=== PATIENT | male | born 2000 | race Caucasian/White ===

== ENCOUNTER 2020-05-01 19:21 | Emergency (ER) | payer OTHER, MEDICAID ==
[~2020-05-01] VITALS: Ht 185.4 cm; Wt 104.3 kg
[2020-05-01 19:30] VITALS: BP_SYST 160
[2020-05-01] MEDS ORDERED: NACL 0.9% 1,000 ML IV ONE (19:42)
[2020-05-01 19:58] LABS: BILIRUBIN,URINE NEGATIVE (NEGATIVE); CLARITY/URINE CLEAR (CLEAR); COLOR,URINE YELLOW (YELLOW); GLUCOSE,URINE NEGATIVE (NEGATIVE); KETONES,URINE TRACE (NEGATIVE); LEUKOCYTE ESTERASE ,URINE NEGATIVE (NEGATIVE); NITRITE, URINE NEGATIVE (NEGATIVE); PROTEIN URINE TRACE (NEGATIVE); UROBILINOGEN,URINE 0.2 (0.2-1.0)
[2020-05-01 20:05] LABS: BLOOD, URINE TRACE (NEGATIVE)
[2020-05-01 20:32] LABS: BASOPHILS # (AUTO) 0.1 K/uL (0.0-0.2); BASOPHILS % (AUTO) 0.6 % (0.0-2.0); EOSINOPHILS # (AUTO) 0.1 K/uL (0.0-0.4); EOSINOPHILS % (AUTO) 0.7 % (0.0-4.0); HEMATOCRIT 50.6 % (36-54); HEMOGLOBIN 16.7 g/dL (14.0-18.0); LYMPHOCYTES # (AUTO) 2.7 K/uL (1.0-5.5); MEAN CORPUSCULAR HEMOGLOBIN 28 pg (27-31); MEAN CORPUSCULAR HGB CONC 33 % (32-36); MEAN CORPUSCULAR VOLUME 84 fL (79.0-98.0); MONOCYTES % (AUTO) 11.5 % (1.7-9.3); NEUTROPHILS # (AUTO) 5.2 K/uL (1.8-7.7); NEUTROPHILS % (AUTO) 57.2 % (40.0-70.0); PLATELET COUNT (AUTO) 271 K/uL (130-430); RED BLOOD CELL COUNT(AUTO) 6.03 MIL/uL (4.2-6.2); WHITE BLOOD COUNT (AUTO) 9.1 K/uL (4.5-11.0)
[2020-05-01 20:34] LABS: CREATININE 1.04 mg/dL (0.55-1.30); POTASSIUM 3.4 mmol/L (3.5-5.1)
[2020-05-01 20:35] LABS: PROTHROMBIN TIME 10.2 SECS (9.5-12.5)
[2020-05-01 20:39] LABS: ALBUMIN 4.5 g/dL (3.4-4.8); TOTAL BILIRUBIN 0.8 mg/dL (0.0-1.0)
[2020-05-01 22:38] VITALS: BP_SYST 128
== END 2020-05-01 22:38 | disposition home or self-care (01) ==
LOC: SED 19:21
DX: R10.11 Right upper quadrant pain (principal)
CPT/HCPCS: 36415; 74176; 80053; 81003; 82150; 83690; 85025; 85610; 96360; 99284; J7030

== ENCOUNTER 2022-07-10 20:45 | Emergency (ER) | payer MEDICAID, OTHER ==
--- NOTE | 2022-07-10 21:18 | NUR ---
CALLED PT TO TRIAGE. NO ANSWER.
--- NOTE | 2022-07-10 21:50 | NUR ---
Called pt to triage. No answer.
--- NOTE | 2022-07-10 22:15 | NUR ---
CALLED PT TO TRIAGE. NO ANSWER.
== END 2022-07-10 22:24 | disposition left against medical advice (07) ==
LOC: SED 20:45
DX: R42 Dizziness and giddiness (principal); Z53.21 Procedure and treatment not carried out due to patient leaving prior to being seen by health care provider